=== PATIENT | male | born 1960 | race Caucasian/White ===

== ENCOUNTER 2020-12-22 13:42 | Emergency (ER) | payer SELFPAY ==
[~2020-12-22] VITALS: Ht 193 cm; Wt 134.3 kg
--- NOTE | 2020-12-22 13:51 | NUR ---
PT ARRIVED AT A [facility] TO VISIT A FRIEND WHEN HE STARTED DEVELOPING BLURRY VISION AND BECAME DIAPHORETIC WITH A BLAKELY. PT PB 70 SYSTOLIC AND RECEIVED A LITER OF LR ENROUTE. PT A&O, AGITATED AND TALKING WITH STAFF
[2020-12-22 14:21] LABS: BASOPHILS % (AUTO) 1 % (0-1); EOSINOPHILS % (AUTO) 1 % (1-7); LYMPHOCYTES % (AUTO) 21 % (22-44); MEAN CORPUSCULAR HEMOGLOBIN 31.5 pg (27.5-34.5); MEAN CORPUSCULAR HGB CONC 33.7 g/dL (33.2-36.2); MEAN PLATELET VOLUME 7.5 fL (7.4-10.4); MONOCYTES % (AUTO) 7 % (2-9); NEUTROPHILS % (AUTO) 70 % (42-75); PLATELET COUNT 311 x10^3/uL (130-400); RED BLOOD COUNT 4.75 x10^6/uL (4.38-5.82); RED CELL DISTRIBUTION WIDTH 13.8 % (9.4-14.8)
[2020-12-22 14:29] LABS: ALANINE AMINOTRANSFERASE 34 U/L (12-78); ALBUMIN 2.7 g/dL (3.4-5.0); ANION GAP 11 mmol/L (5-15); CHLORIDE 105 mmol/L (98-107); CREATININE 1.52 mg/dL (0.7-1.3)
[2020-12-22 14:33] LABS: ALKALINE PHOSPHATASE 86 U/L (45-117); BILIRUBIN,TOTAL 0.3 mg/dL (0.2-1.0); TOTAL PROTEIN 6.4 g/dL (6.4-8.2); TROPONIN I < 0.015 ng/mL (0.000-0.045)
[2020-12-22 14:44] LABS: MICROSCOPIC INDICATED
--- NOTE | 2020-12-22 14:45 | NUR ---
PER DR TORRES VERBAL ORDER, INDWELLING CATHETER REPLACED. 18 POLISH COUDET USED. 7 ML OF URINE OUTPUT NOTED
[2020-12-22] MEDS ORDERED: CEFTRIAXONE 1,000 MG in DEXTROSE 5% 50 ML IVPB ONE (15:00)
[2020-12-22 15:14] VITALS: BP 102/62
--- NOTE | 2020-12-22 15:17 | NUR ---
FRIEND AT BEDSIDE, PT A&O, CONVERSING AND IN NO DISTRESS WHILE RESTING IN [facility]. STATING HE DOES NOT WANT TO BE ADMITTED TO HOSP
--- NOTE | 2020-12-22 15:17 | NUR ---
CONTINUE TO MONITOR PT WITH STABLE BP NOTED.
--- NOTE | 2020-12-22 16:13 | NUR ---
URINE COLLECTION BAG CHANGED TO LEG BAG. PT ABLE TO AMBULATE WITHOUT ASSISTANCE. GIVEN DISCHARGE AND PT STATES HE WILL FOLLOW UP ON FRIDAY WITH HIS TO DISCHARGE WINDOW VIA W/C
== END 2020-12-22 16:16 | disposition home or self-care (01) ==
LOC: ED 16:10
DX: N12 Tubulo-interstitial nephritis, not specified as acute or chronic (principal); N39.0 Urinary tract infection, site not specified; F17.210 Nicotine dependence, cigarettes, uncomplicated; R94.31 Abnormal electrocardiogram [ECG] [EKG]
CPT/HCPCS: 36415; 51701; 71045; 80053; 81001; 83605; 83880; 84145; 84484; 85025; 87040; 87086; 93005; 96365; 99285; J0696